=== PATIENT | female | born 2005 | race Caucasian/White ===

== ENCOUNTER 2024-05-15 13:47 | Observation (INO) ==
[2024-05-15 15:57] LABS: Basophils # (auto) 0.04 K/uL (0.00-0.20); Basophils % (auto) 0.4 %; Eosinophils # (auto) 0.03 K/uL (0.00-0.50); Eosinophils % (auto) 0.3 %; Hematocrit (blood only) 38.3 % (37.0-47.0); Immature Granulocytes # (auto) 0.02 K/uL (0.01-0.20); Immature Granulocytes % (auto) 0.2 %; Lymphocytes # (auto) 2.66 K/uL (1.20-3.40); Lymphocytes % (auto) 28.6 %; Mean Corpuscular Hemoglobin 26.8 pg (25.0-34.0); Mean Corpuscular Hgb Conc 33.9 g/dL (32.0-36.0); Mean Platelet Volume 8.9 fL (9.4-12.4); Monocytes # (auto) 0.43 K/uL (0.11-0.59); Monocytes % (auto) 4.6 %; Neutrophils # (auto) 6.13 K/uL (1.40-6.50); Neutrophils % (auto) 65.9 %; Platelet Count 466 K/uL (130-400); RDW Coefficient of Variation 12.9 % (11.5-14.5); RDW Standard Deviation 36.6 fL (36.4-46.3); Red Blood Count 4.85 M/uL (4.20-5.40); White Blood Count 9.31 K/ul (4.8-10.8)
--- NOTE | 2024-05-15 16:04 | XRay Report ---
XR chest 1V not portable HISTORY: 19 years-old Female Chest pain, nonspecific COMPARISON: None TECHNIQUE: PA view of the chest FINDINGS: Cardiomediastinal and hilar silhouettes are within normal limits. No pneumothorax, pleural effusion o r airspace consolidation. The bones appear normal. IMPRESSION: Normal exam. ACT 112: Negative or not required by law. The above report was generated using voice recognition software. It may contain grammatical, syntax o r spelling errors. Electronically signed by: Yahir Appiah M.D. 05/15/2024 4:02 PM
[2024-05-15 16:13] LABS: Albumin Globulin Ratio 1.3 (0.9-2); Albumin Level 4.5 gm/dl (3.4-5.0); Bilirubin,Total 0.4 mg/dl (0.2-1.0); Calcium 9.7 mg/dl (8.6-10.3); Creatinine Clr Calc Pharmacy 183.8 ml/min; Globulin 3.4 gm/dl (2.5-4.0); Potassium 3.6 mmol/L (3.5-5.1); Total Protein 7.9 gm/dl (6.0-8.3)
[2024-05-15 16:24] LABS: Partial Thromboplastin Time 26 Seconds (21-31); Prothrombin Time 10.5 Seconds (9.0-12.0)
[2024-05-15 16:27] LABS: Troponin I High Sensitivity 52.4 pg/ml (0-14)
--- NOTE | 2024-05-15 16:28 | Emergency Department Note ---
Impression & Plan Elevated troponin, Chest pain, Hypokalemia, Thrombocytosis ED Provider Note NAME: RAFFAELE MEDINA AGE: 19 SEX: F : 2005 ARRIVES VIA: Walk-In INFORMANT: Patient, ED PROVIDER(S): Kameron Green MD CHIEF COMPLAINT: Chest pain, outpatient referral MEDICAL DECISION MAKING: Patient presents with the above. IV was established and blood work is obtained. Patient with a normal white count hemoglobin with thrombocytosis of 466 kidney functions unremarkable with normal lecture lites. Troponin of 52.4. Patient did receive IV fluids and IV Zofran as the patient was complaining of nausea that began yesterday. EKG without signs of obvious ischemia. Repeat troponin was added. Upon reassessment the patient was feeling improved. Patient has no further symptoms. Repeat troponin shows downtrending troponin. Unable to obtain echo at this time. I did speak the on-call hospital service Dr. Snider and the patient was going to be admitted by Dr. Clancy. Dr. Snider and Dr. Clancy inpatient medicine service Discussion w/ other healthcare providers: None Prior /Outside records reviewed: None Differential diagnosis: Cardiac ischemia, aortic dissection, pulmonary embolism, pneumothorax, pneumonia, pericarditis, myocarditis, GERD, cholecystitis, pancreatitis, musculoskeletal, as well as other pathologies were considered. Diagnostics, as interpreted by me: ECG: Normal sinus rhythm, rate of 86, normal intervals, normal axis, T wave version in lead III. Cardiac monitoring: An order was placed for continuous cardiac monitoring. The monitor shows a rate of 82 with sinus rhythm. Patient was placed on pulse oximetry Medical decision rules: Heart score Imaging studies: I informally interpreted the patient's chest x-ray does not show obvious pneumonia or pneumothorax with formal report to follow. HPI: Patient presents due to concern for chest pain that she described as burning in nature that which began around 1230. The patient states that it began about an hour and a half after obtaining some outpatient recent blood work which was ordered because the patient developed some nausea yesterday. Patient states that she has had no cough or fever no upper or lower respiratory symptoms. The patient denies any abdominal pain. Patient states that the chest burning pain has been constant and has been centralized nonradiating. No leg swelling or calf pain no history of DVT or PE. The patient does use control and does have a NuvaRing. Patient states that she does take Dupixent for known history of eczema otherwise no other medications other than national medications for PCOS. Patient denies any recent long car plane travel. PAST MEDICAL HISTORY: See Below PAST SURGICAL HISTORY: See Below SOCIAL HISTORY: See Below HOME MEDICATIONS: See Below ALLERGIES: See Below VITALS: See Below PHYSICAL EXAMINATION: GENERAL: NAD, non-toxic. Wearing glasses. EYE EXAM: Normal conjunctiva. PERRL, no anisocoria and EOM's grossly intact w/o pain. OROPHARYNX: Moist mucus membranes, grossly normal dentition. NECK: Trachea midline, no stridor. Supple, no nuchal rigidity, no adenopathy, non-tender. No signs of meningismus. FROM of the neck with good chin to chest and neck extension. LUNGS: Clear to auscultation. Normal chest wall mechanics. HEART: NSR, no MRG. ABDOMEN: Abdomen soft, non-tender, no masses, no rebound or guarding. BACK: No CVA TTP. SKIN: No rashes and no bruising. UPPER EXTREMITIES: Upper extremities are grossly normal. LOWER EXTREMITIES: Grossly normal, no edema. Negative Homans' sign bilaterally. NEURO EXAM: A&O x3, cranial nerves II-XII grossly intact, normal speech, moves all 4 extremities. Past Med/Surg History Problem List (Updated 05/16/24 @ 00:06 by Kameron Green MD) Elevated troponin (Acute) Thrombocytosis (Acute) Hypokalemia (Acute) Chest pain (Acute) Social History Smoking Status: Never smoker Hx Alcohol Use: No Hx Substance Use: No Preferred Language: Palauan Communication Ability: Effective Correspondence Clerk Required: No Beliefs That Will Affect Care: None Current Living Situation: Other Other Information That Helps Us Care for You: No Feels Safe at Home: Yes Safety Concerns: Feels Safe At This Time Assistive Devices: None Allergies Allergies Allergy/AdvReac Type Severity Reaction Status Date / Time bee venom protein (honey bee) Allergy Mild swelling Unverified 05/15/24 18:55 Home Meds Home Medications Medication Instructions Recorded Confirmed Berberine 1 tab PO DAILY 05/15/24 05/15/24 Dupixent Syringe 1 dose INJ .Q OTHER WEEK 05/15/24 05/15/24 Vitamin D3 1 cap PO DAILY 05/15/24 05/15/24 amitriptyline 20 mg PO DAILY 05/15/24 05/15/24 etonogestrel 0.12 mg-ethinyl 1 vag ring vaginal MONTHLY 05/15/24 05/15/24 estradiol 0.015 mg/24 hr vaginal ring (NuvaRing) inositol 2 tab PO BID 05/15/24 05/15/24 Results & Data (ED) Vital Signs Vital Signs - 24 hr 05/15/24 13:59 05/15/24 17:03 05/15/24 18:13 Temperature 36.5 C Temperature Source Temporal Artery Scan Pulse Rate 93 H Pulse Rate [Finger] 105 H Respiratory Rate 18 16 Respiratory Effort / Characteristics Non-Labored Spontaneous Non-Labored Spontaneous Respiratory Depth Normal Normal Respiratory Pattern Regular Blood Pressure 148/87 H Blood Pressure [Left Arm] 129/67 Blood Pressure Mean 107 Blood Pressure Mean [Left Arm] 87 Blood Pressure Position [Left Arm] Lying Pulse Oximetry 97 100 99 Oxygen Delivery Method Room Air Room Air Room Air Sepsis Recent Fever Within 48 Hours No Sepsis New/Unexplained Change in Mental Status N/A Sepsis Action Taken by Nursing No Action Required 05/15/24 18:13 05/15/24 18:13 05/15/24 18:36 Temperature Temperature Source Pulse Rate 84 Pulse Rate [Finger] Respiratory Rate Respiratory Effort / Characteristics Respiratory Depth Respiratory Pattern Blood Pressure Blood Pressure [Left Arm] Blood Pressure Mean Blood Pressure Mean [Left Arm] Blood Pressure Position [Left Arm] Pulse Oximetry 99 100 Oxygen Delivery Method Room Air Room Air Sepsis Recent Fever Within 48 Hours Sepsis New/Unexplained Change in Mental Status Sepsis Action Taken by Nursing 05/15/24 19:00 Temperature Temperature Source Pulse Rate Pulse Rate [Finger] 108 H Respiratory Rate 18 Respiratory Effort / Characteristics Non-Labored Spontaneous Respiratory Depth Normal Respiratory Pattern Regular Blood Pressure Blood Pressure [Left Arm] 139/73 Blood Pressure Mean Blood Pressure Mean [Left Arm] 95 Blood Pressure Position [Left Arm] Pulse Oximetry 97 Oxygen Delivery Method Room Air Sepsis Recent Fever Within 48 Hours Sepsis New/Unexplained Change in Mental Status Sepsis Action Taken by Long-Term Medications Current Medication List: was personally reviewed by me Laboratory Data Attestation: I reviewed the patient's lab results. 05/15/24 15:24 05/15/24 15:24 Lab Results 05/15/24 05/15/24 05/15/24 Range/Units 15:24 17:35 19:38 WBC 9.31 (4.8-10.8) K/ul RBC 4.85 (4.20-5.40) M/uL Hgb 13.0 (12.0-16.0) g/dl Hct 38.3 (37.0-47.0) % MCV 79.0 L (80.0-100.0) fL MCH 26.8 (25.0-34.0) pg MCHC 33.9 (32.0-36.0) g/dL RDW Std Deviation 36.6 (36.4-46.3) fL RDW Coeff of Yani 12.9 (11.5-14.5) % Plt Count 466 H (130-400) K/uL MPV 8.9 L (9.4-12.4) fL Immature Gran % (Auto) 0.2 % Neut % (Auto) 65.9 % Lymph % (Auto) 28.6 % [place] % (Auto) 4.6 % Eos % (Auto) 0.3 % Baso % (Auto) 0.4 % Neut # (Auto) 6.13 (1.40-6.50) K/uL Lymph # (Auto) 2.66 (1.20-3.40) K/uL [place] # (Auto) 0.43 (0.11-0.59) K/uL Eos # (Auto) 0.03 (0.00-0.50) K/uL Baso # (Auto) 0.04 (0.00-0.20) K/uL Immature Gran # (Auto) 0.02 (0.01-0.20) K/uL PT 10.5 (9.0-12.0) Seconds INR 1.0 (0.9-1.1) APTT 26 (21-31) Seconds PTT Ratio 1.0 D-Dimer Cancelled Sodium 140 (136-145) mmol/L Potassium 3.6 (3.5-5.1) mmol/L Chloride 106 (98-107) mmol/L Carbon Dioxide 25 (21-32) mmol/L Anion Gap 9 (3-11) BUN 6 (6-23) mg/dl Creatinine 0.60 (0.6-1.2) mg/dl Est Cr Clr Drug Dosing 183.8 ml/min eGFR 131.70 BUN/Creatinine Ratio 10.0 (10-20) Glucose 89 (70-99(Fasting)) mg/dl Uric Acid 5.7 (2.6-7.2) mg/dl Calcium 9.7 (8.6-10.3) mg/dl Magnesium 2.1 (1.7-2.4) mg/dl Total Bilirubin 0.4 (0.2-1.0) mg/dl AST 19 (13-39) U/L ALT 27 (7-52) U/L Alkaline Phosphatase 75 (34-104) U/L Troponin I High Sens 52.4 H* 44.1 H 48.5 H (0-14) pg/ml Total Protein 7.9 (6.0-8.3) gm/dl Albumin 4.5 (3.4-5.0) gm/dl Globulin 3.4 (2.5-4.0) gm/dl Albumin/Globulin Ratio 1.3 (0.9-2) TSH 1.461 (0.300-4.500) uIu/ml Adenovirus (PCR) (NotDetected) B. pertussis DNA (PCR) (NotDetected) B.parapertussis DNA PCR (NotDetected) C. pneumoniae DNA (PCR) (NotDetected) Coronavirus OC43 (PCR) (NotDetected) Coronavirus HKU1 (PCR) (NotDetected) Coronavirus 229E (PCR) (NotDetected) SARS-CoV-2 (PCR) (NotDetected) Coronavirus NL63 (PCR) (NotDetected) Human Metapneumovir PCR (NotDetected) Influenza Type A (PCR) (NotDetected) Influenza Type B (PCR) (NotDetected) M. pneumoniae (PCR) (NotDetected) Parainfluenza 1 (PCR) (NotDetected) Parainfluenza 2 (PCR) (NotDetected) Parainfluenza 3 (PCR) (NotDetected) Parainfluenza 4 (PCR) (NotDetected) RSV (PCR) (NotDetected) Entero/Rhino (PCR) (NotDetected) 05/15/24 Range/Units 19:48 WBC (4.8-10.8) K/ul RBC (4.20-5.40) M/uL Hgb (12.0-16.0) g/dl Hct (37.0-47.0) % MCV (80.0-100.0) fL MCH (25.0-34.0) pg MCHC (32.0-36.0) g/dL RDW Std Deviation (36.4-46.3) fL RDW Coeff of Yani (11.5-14.5) % Plt Count (130-400) K/uL MPV (9.4-12.4) fL Immature Gran % (Auto) % Neut % (Auto) % Lymph % (Auto) % [place] % (Auto) % Eos % (Auto) % Baso % (Auto) % Neut # (Auto) (1.40-6.50) K/uL Lymph # (Auto) (1.20-3.40) K/uL [place] # (Auto) (0.11-0.59) K/uL Eos # (Auto) (0.00-0.50) K/uL Baso # (Auto) (0.00-0.20) K/uL Immature Gran # (Auto) (0.01-0.20) K/uL PT (9.0-12.0) Seconds INR (0.9-1.1) APTT (21-31) Seconds PTT Ratio D-Dimer Sodium (136-145) mmol/L Potassium (3.5-5.1) mmol/L Chloride (98-107) mmol/L Carbon Dioxide (21-32) mmol/L Anion Gap (3-11) BUN (6-23) mg/dl Creatinine (0.6-1.2) mg/dl Est Cr Clr Drug Dosing ml/min eGFR BUN/Creatinine Ratio (10-20) Glucose (70-99(Fasting)) mg/dl Uric Acid (2.6-7.2) mg/dl Calcium (8.6-10.3) mg/dl Magnesium (1.7-2.4) mg/dl Total Bilirubin (0.2-1.0) mg/dl AST (13-39) U/L ALT (7-52) U/L Alkaline Phosphatase (34-104) U/L Troponin I High Sens (0-14) pg/ml Total Protein (6.0-8.3) gm/dl Albumin (3.4-5.0) gm/dl Globulin (2.5-4.0) gm/dl Albumin/Globulin Ratio (0.9-2) TSH (0.300-4.500) uIu/ml Adenovirus (PCR) Not Detected (NotDetected) B. pertussis DNA (PCR) Not Detected (NotDetected) B.parapertussis DNA PCR Not Detected (NotDetected) C. pneumoniae DNA (PCR) Not Detected (NotDetected) Coronavirus OC43 (PCR) Not Detected (NotDetected) Coronavirus HKU1 (PCR) Not Detected (NotDetected) Coronavirus 229E (PCR) Not Detected (NotDetected) SARS-CoV-2 (PCR) Not Detected (NotDetected) Coronavirus NL63 (PCR) Not Detected (NotDetected) Human Metapneumovir PCR Not Detected (NotDetected) Influenza Type A (PCR) Not Detected (NotDetected) Influenza Type B (PCR) Not Detected (NotDetected) M. pneumoniae (PCR) Not Detected (NotDetected) Parainfluenza 1 (PCR) Not Detected (NotDetected) Parainfluenza 2 (PCR) Not Detected (NotDetected) Parainfluenza 3 (PCR) Not Detected (NotDetected) Parainfluenza 4 (PCR) Not Detected (NotDetected) RSV (PCR) Not Detected (NotDetected) Entero/Rhino (PCR) Not Detected (NotDetected) Administered Medications Colchicine (Colchicine 0.6 Mg Tab) 0.6 mg PO BID SMITH Stop: 06/14/24 20:59 Last Admin: 05/15/24 20:54 Dose: 0.6 mg Documented By: BETTE Sodium Chloride (Nss) 500 mls @ 80 mls/hr IV .Q6H15M SMITH Stop: 05/16/24 02:29 Last Admin: 05/15/24 21:16 Dose: 80 mls/hr Documented By: BETTE Discontinued Medications Al Hydrox/Mg Hydrox/Simethicone (Aluminum/Magnesium Susp 30 Ml Udc) 30 ml PO NOW STA Stop: 05/15/24 16:53 Last Admin: 05/15/24 16:59 Dose: 30 ml Documented By: CONCHITAK Aspirin (Aspirin 81 Mg Chew) 81 mg PO NOW STA Stop: 05/15/24 20:01 Last Admin: 05/15/24 20:22 Dose: 81 mg Documented By: BETTE Sodium Chloride (Nss) 500 mls @ 999 mls/hr IV .Q31M ONE Stop: 05/15/24 17:19 Last Infusion: 05/15/24 17:31 Dose: Infused Documented By: Admin: 05/15/24 17:00 Dose: 999 mls/hr Documented By: CONCHITAK Pantoprazole Sodium (Protonix) 40 mg in 10 mls @ 5 mls/min IV NOW ONE Stop: 05/15/24 19:46 Last Admin: 05/15/24 19:54 Dose: 5 mls/min Documented By: BETTE Acetaminophen (Ofirmev) 1,000 mg in 100 mls @ 400 mls/hr IV NOW STA Stop: 05/15/24 21:10 Last Infusion: 05/15/24 21:30 Dose: Infused Documented By: Admin: 05/15/24 21:15 Dose: 400 mls/hr Documented By: BETTE Ondansetron HCl (Ondansetron Inj 2 Mg/Ml 2 Ml Vial) 4 mg IV NOW STA Stop: 05/15/24 16:50 Last Admin: 05/15/24 16:59 Dose: 4 mg Documented By: CONCHITAK Potassium Chloride (Potassium Chloride Crtab 20 Meq Tabcr) 40 meq PO NOW STA Stop: 05/15/24 20:02 Last Admin: 05/15/24 20:22 Dose: 40 meq Documented By: BETTE Imaging Data Radiologist's Impression: Chest X-Ray 05/15/24 14:03 XR chest 1V not portable HISTORY: 19 years-old Female Chest pain, nonspecific COMPARISON: None TECHNIQUE: PA view of the chest FINDINGS: Cardiomediastinal and hilar silhouettes are within normal limits. No pneumothorax, pleural effusion or airspace consolidation. The bones appear normal. IMPRESSION: Normal exam. ACT 112: Negative or not required by law. The above report was generated using voice recognition software. It may contain grammatical, syntax or spelling errors. Electronically signed by: Yahir Appiah M.D. 05/15/2024 4:02 PM Discharge Plan Visit Data Chief Complaint: Chest Pain Stated Complaint: HEART BURN/CHEST GIBBS, NAUSEA, HAS ZOFRAN ED Provider: Kameron Green Discharge Problem: Elevated troponin, Chest pain, Hypokalemia, Thrombocytosis Patient Disposition: Admitted As Inpatient Discharge Instructions Interventions: ED Discharge Assessment Last Done: 05/15/24 22:55 Discharge Problem: Chest pain Qualifiers: Chest pain type: unspecified Qualified Code(s): R07.9 - Chest pain, unspecified
--- NOTE | 2024-05-15 16:42 | Electrocardiogram Report ---
Test Reason : Blood Pressure : */* mmHG Vent. Rate : 86 BPM Atrial Rate : 86 BPM P-R Int : 142 ms QRS Dur : 80 ms QT Int : 362 ms P-R-T Axes : 25 20 36 degrees QTcB Int : 433 ms Normal sinus rhythm with sinus arrhythmia Normal ECG No previous ECGs available Confirmed by Bart Reynoso ([id number]) on 05/15/2024 4:41:25 PM Referred By: Confirmed By: Bart Reynoso
[2024-05-15] MEDS: ONDANSETRON INJ 2 MG/ML 2 ML VIAL IV STA (16:59)
[2024-05-15] MEDS: ALUMINUM/MAGNESIUM SUSP 30 ML UDC PO STA (16:59)
[2024-05-15] MEDS: SODIUM CHLORIDE 0.9% 500 ML IV ONE (17:00)
--- NOTE | 2024-05-15 19:13 | History & Physical Report ---
Date of Service May 15, 2024 Assessment & Plan (1) Chest pain: (2) Elevated troponin: (3) Hypokalemia: (4) Thrombocytosis: Plan Patient is a 19-year-old female with a past medical history of GERD, interstitial cystitis, eczema, PCOS. She presented to the ED due to a midsternal burning chest pain that she describes similar to heartburn. Patient has had similar pain in the past when she got anxious, has had increase in stress over the past week. Patient has also had nausea, fatigue, and diarrhea for roughly 1 week. Her chest pain has resolved to 0/10 after Maalox and Zofran in ED. Patient is being admitted for a chest pain workup. #chest pain/ elevated trop d dimer negative, TSH WNL, uric acid negative EKG showing NSR patient is on estrogen control, NuvaRing Differential includes GERD vs viral myocarditis vs takotsubo cardiomyopathy will order colchicine 0.6 mg BID will order aspirin 81 BID will order pantoprazole IV order scheduled Tylenol Zofran prn, Maalox prn - will consider Toradol and Carafate if pain persists monitor on tele echo ordered elevated trop - downtrending 52.4 -> 44.1; trend trop Q6H, monitor on tele tachycardia - Hr 108, suspect secondary to anxiety, d dimer negative, will give additional IVF with NSS 500 mL at 80 mL/hour #hypokalemia with chest pain k+ 3.6 -> will optimize for goal of 4.0 - 40 meq PO ordered Mg stable #thrombocytosis platelets 466 Suspect 2/2 acute infection Trend CBC Chronic stable diagnoses: interstitial cystitis - uses amitriptyline as needed PCOS - on home supplements; held on admission as NF eczema - dupixent out pt VTE ppx: SCDs - low risk Diet: regular as tolerated Dispo: med/tele Admission and Anticipated Discharge Date Admission Date: 05/15/24 History of Present Illness Chief Complaint: chest pain Primary Care Provider: [facility] Patient is a 19-year-old female with a past medical history of eczema, GERD, interstitial cystitis, PCOS. She was seen at bedside with her college friends present. She stated that 05/07 she [address] home and back within 1 day which was a 6-hour car ride. After this she started with nausea that has been ongoing since . She thought she just had a stomach bug because she typically gets nausea with the stomach bug, she denies vomiting. She also endorses diarrhea at the beginning of the week that is now resolved; roughly 2-3 episodes. On Saturday this week she stated she just felt worn down and like she was fighting something. She has been extremely stressed as she has been participating in [employer] ([place] When she was younger she used to get similar chest pain when she had anxiety and was stressed out. due to the nausea she called [facility] at bedtime on Saturday and they called 911, paramedics said everything looked okay and she did not need to be evaluated in the ED. she a lso called her PCP earlier this week who prescribed her Zofran for the nausea which did not seem to help. Today she received outpatient blood work which all looked okay according to the patient. She describes a chest pain that began at 1230 today After receiving the blood work. Her roommate was driving home when the patient began crying due to significant burning/heartburn that developed midsternal and spread out across her chest. She stated this burning sensation was 7/10 pain. She stated that it felt like she could not burp which has been happening this week due to the nausea. Patient denies fever, chills, headache, dizziness, lightheadedness, rhinorrhea, sore throat, cough, sputum production, dyspnea, dyspnea on exertion, abdominal pain, constipation, numbness, tingling. She denies any leg swelling. She did have the long car ride roughly a week ago. She denies any history of hypercoagulable states or previous VTE. Her grandmother did of a PE but also had lung cancer. Patient denies any history of diabetes but does have significant family history of. She does not use nicotine products or illicit drugs. She drinks alcohol roughly 1 time a week. She has had no recent medication changes. She wishes to be full code at this time. Patient's parents updated at bedside via phone. 2056 patient's chest pain returned, EKG showed NSR, repeat troponin 46.4. IV Tylenol ordered. Patient's friends getting [employer] for her for dinner at she feels she is able to tolerate p.o. intake and is hungry. If chest pain is still present after 30 minutes, will order IV Toradol. Allergies Allergy/AdvReac Type Severity Reaction Status Date / Time bee venom protein (honey bee) Allergy Mild swelling Unverified 05/15/24 18:55 Home Medications Medication Instructions Recorded Confirmed Type Berberine 1 tab PO DAILY 05/15/24 05/15/24 History Dupixent Syringe 1 dose INJ .Q OTHER WEEK 05/15/24 05/15/24 History Vitamin D3 1 cap PO DAILY 05/15/24 05/15/24 History amitriptyline 20 mg PO DAILY 05/15/24 05/15/24 History etonogestrel 0.12 mg-ethinyl 1 vag ring vaginal MONTHLY 05/15/24 05/15/24 History estradiol 0.015 mg/24 hr vaginal ring (NuvaRing) inositol 2 tab PO BID 05/15/24 05/15/24 History Past Med/Surg History Problem List (Updated 05/16/24 @ 00:06 by Kameron Green MD) Elevated troponin (Acute) Thrombocytosis (Acute) Hypokalemia (Acute) Chest pain (Acute) Social History Smoking Status: Never smoker Hx Alcohol Use: No Hx Substance Use: No Preferred Language: Tajik Communication Ability: Effective Cork Compounder Required: No Beliefs That Will Affect Care: None Current Living Situation: Other Feels Safe at Home: Yes Assistive Devices: None Review of Systems Review of Systems: see HPI Physical Exam Physical Exam: The patient is awake, alert and oriented 3, well developed and well nourished, normocephalic and atraumatic, in no acute distress. Non-toxic appearing. HEENT- EOMI, mucous membranes moist. Hearing grossly intact. Heart-normal S1 and S2. No murmurs, rubs or gallops. Lungs-clear bilaterally, no respiratory distress, no accessory muscle use. Abdomen-normal bowel sounds and soft. No ascites noted. Non-tender. Extremities- no clubbing, cyanosis, or edema. Rheumatologic-normal range of motion. Psychiatric-anxious affect. Results & Data Results & Data Vital Signs (Past 12 Hours) Vital Signs Temp Pulse Pulse Resp BP BP Pulse Ox 05/15/24 18:36 84 05/15/24 18:13 100 05/15/24 18:13 99 05/15/24 18:13 99 05/15/24 17:03 105 H 16 129/67 100 05/15/24 13:59 36.5 C 93 H 18 148/87 H 97 O2 Del Method 05/15/24 18:36 05/15/24 18:13 Room Air 05/15/24 18:13 Room Air 05/15/24 18:13 Room Air 05/15/24 17:03 Room Air 05/15/24 13:59 Room Air Laboratory Results Reviewed CBC, CMP, PT/INR,, Mg, troponin, TSH Diagnostic Findings reviewed CXR Medications Administered ed: Maalox 30 Mg p.o., 500 mL NSS bolus, IV Zofran ECG Additional Comments: NSR Code Status & VTE Plan Code Status full code VTE Prophylaxis Plan VTE Prophylaxis will be ordered: Yes Supervising Physician Co-Signing Physician Notes Attending addendum: I have physically seen this patient, have supervised the AP's activities, and agree with the H&P unless as otherwise noted. Assessment and Plan: The patient is a 19-year-old female with past medical history including GERD, interstitial cystitis, eczema and PCOS. She presents to the emergency department with midsternal burning chest pain, felt like heartburn, however, became anxious, episodes ED for evaluation. In ED patient was found to be elevated troponin 44.1 with mild increased 52.4, and was referred for evaluation for admission. #Elevated troponin/chest pain- Negative D-dimer, uric acid negative not, EKG with normal sinus rhythm no acute ST-T changes Differential including Takotsubo's, myocarditis, NSTEMI The patient will be admitted to telemetry for serial cardiac enzymes, serial EKG's, cardiac rhythm monitoring and a 2-D echocardiogram with Dopplers. Start colchicine 0.6 mg p.o. twice daily and aspirin 81 mg p.o. twice daily Single dose pantoprazole 40 mg IV Acetaminophen 650 mg p.o. every 6 hours Zofran as needed Consult cardiology PG Care Time/CCT Total # of Minutes Spent Total Time Spent with Patient: Total time spent is greater than 50% in coordination of care (as documented) at patient's floor/unit and/or counseling patient: Coding Level of Care Code 99705 INT INP/OBS CARE 3/75MIN Diagnoses Chest pain R07.9 Elevated troponin R79.89 Hypokalemia E87.6 Thrombocytosis D75.83
[2024-05-15] MEDS: PANTOprazole 40 MG/10 ML SYR IV ONE (19:54)
[2024-05-15 20:09] LABS: Magnesium 2.1 mg/dl (1.7-2.4)
[2024-05-15 20:16] LABS: Troponin I High Sensitivity 48.5 pg/ml (0-14)
[2024-05-15 20:22] LABS: Uric Acid 5.7 mg/dl (2.6-7.2)
[2024-05-15] MEDS: ASPIRIN 81 MG CHEW PO STA (20:22)
[2024-05-15] MEDS: POTASSIUM CHLORIDE CRTAB 20 MEQ TABCR PO STA (20:22)
[2024-05-15 20:25] LABS: Thyroid Stimulating Hormone 1.461 uIu/ml (0.300-4.500)
[2024-05-15] MEDS: COLCHICINE 0.6 MG TAB PO SCH (20:54)
[2024-05-15] MEDS: ACETAMINOPHEN 1,000 MG/100 ML VIAL IV STA (21:15)
[2024-05-15] MEDS: SODIUM CHLORIDE 0.9% 500 ML IV SCH (21:16)
[2024-05-15 21:24] LABS: D Dimer 440 ug/L FEU (0-500)
[2024-05-15 21:51] LABS: Adenovirus PCR Not Detected (NotDetected); Bordetella parapertussis PCR Not Detected (NotDetected); Bordetella pertussis PCR Not Detected (NotDetected); Chlamydia pneumoniae PCR Not Detected (NotDetected); Coronavirus 229E PCR Not Detected (NotDetected); Coronavirus CoV-2 (COVID19)PCR Not Detected (NotDetected); Coronavirus HKU1 PCR Not Detected (NotDetected); Coronavirus NL63 PCR Not Detected (NotDetected); Coronavirus OC43PCR Not Detected (NotDetected); Human Metapneumovirus PCR Not Detected (NotDetected); Influenza A PCR Not Detected (NotDetected); Influenza B PCR Not Detected (NotDetected); Mycoplasma pneumoniae PCR Not Detected (NotDetected); Parainfluenza Virus 1 PCR Not Detected (NotDetected); Parainfluenza Virus 2 PCR Not Detected (NotDetected); Parainfluenza Virus 3 PCR Not Detected (NotDetected); Parainfluenza Virus 4 PCR Not Detected (NotDetected); Respiratory Syncytial VirusPCR Not Detected (NotDetected); Rhinovirus/Enterovirus PCR Not Detected (NotDetected)
[2024-05-15] MEDS ORDERED: ONDANSETRON INJ 2 MG/ML 2 ML VIAL IV PRN (23:19)
[2024-05-15] MEDS ORDERED: ALUMINUM/MAGNESIUM SUSP 30 ML UDC PO PRN (23:19)
[2024-05-15] MEDS ORDERED: ACETAMINOPHEN 325 MG TAB PO PRN (23:19)
[2024-05-16 03:07] LABS: Basophils # (auto) 0.03 K/uL (0.00-0.20); Basophils % (auto) 0.3 %; Eosinophils # (auto) 0.06 K/uL (0.00-0.50); Eosinophils % (auto) 0.7 %; Hematocrit (blood only) 35.6 % (37.0-47.0); Hemoglobin 11.9 g/dl (12.0-16.0); Immature Granulocytes # (auto) 0.02 K/uL (0.01-0.20); Immature Granulocytes % (auto) 0.2 %; Lymphocytes # (auto) 3.46 K/uL (1.20-3.40); Lymphocytes % (auto) 39.5 %; Mean Corpuscular Hemoglobin 26.3 pg (25.0-34.0); Mean Corpuscular Hgb Conc 33.4 g/dL (32.0-36.0); Mean Corpuscular Volume 78.8 fL (80.0-100.0); Mean Platelet Volume 8.9 fL (9.4-12.4); Monocytes # (auto) 0.51 K/uL (0.11-0.59); Monocytes % (auto) 5.8 %; Neutrophils # (auto) 4.69 K/uL (1.40-6.50); Neutrophils % (auto) 53.5 %; Platelet Count 418 K/uL (130-400); Red Blood Count 4.52 M/uL (4.20-5.40); White Blood Count 8.77 K/ul (4.8-10.8)
[2024-05-16 03:24] LABS: BUN Creatinine Ratio 11.1 (10-20); Calcium 8.5 mg/dl (8.6-10.3); Creatinine Clr Calc Pharmacy 204.4 ml/min; Magnesium 2.2 mg/dl (1.7-2.4); Potassium 3.9 mmol/L (3.5-5.1)
[2024-05-16] MEDS: ACETAMINOPHEN 325 MG TAB PO SCH (05:15)
[2024-05-16] MEDS: ASPIRIN 81 MG ECTAB PO SCH (07:41)
[2024-05-16] MEDS: PANTOprazole 40 MG/10 ML SYR IV SCH (07:41)
--- NOTE | 2024-05-16 09:59 | Discharge Summary ---
Date of Service May 16, 2024 Admission HPI Per Admitting Provider Patient is a 19-year-old female with a past medical history of eczema, GERD, interstitial cystitis, PCOS. She was seen at bedside with her college friends present. She stated that 05/07 she drove home and back within 1 day which was a 6-hour car ride. After this she started with nausea that has been ongoing since . She thought she just had a stomach bug because she typically gets nausea with the stomach bug, she denies vomiting. She also endorses diarrhea at the beginning of the week that is now resolved; roughly 2-3 episodes. On Saturday this week she stated she just felt worn down and like she was fighting something. She has been extremely stressed as she has been participating in better.. When she was younger she used to get similar chest pain when she had anxiety and was stressed out. due to the nausea she called [facility] at bedtime on Saturday and they called 911, paramedics said everything looked okay and she did not need to be evaluated in the ED. she also called her PCP earlier this week who prescribed her Zofran for the nausea which did not seem to help. Today she received outpatient blood work which all looked okay according to the patient. She describes a chest pain that began at 1230 today After receiving the blood work. Her roommate was driving home when the patient began crying due to significant burning/heartburn that developed midsternal and spread out across her chest. She stated this burning sensation was 7/10 pain. She stated that it felt like she could not burp which has been happening this week due to the nausea. Patient denies fever, chills, headache, dizziness, lightheadedness, rhinorrhea, sore throat, cough, sputum production, dyspnea, dyspnea on exertion, abdominal pain, constipation, numbness, tingling. She denies any leg swelling. She did have the long car ride roughly a week ago. She denies any history of hypercoagulable states or previous VTE. Her grandmother did of a PE but also had lung cancer. Patient denies any history of diabetes but does have significant family history of. She does not use nicotine products or illicit drugs. She drinks alcohol roughly 1 time a week. She has had no recent medica tion changes. She wishes to be full code at this time. Patient's parents updated at bedside via phone. 2056 patient's chest pain returned, EKG showed NSR, repeat troponin 46.4. IV Tylenol ordered. Patient's friends getting [employer] for her for dinner at she feels she is able to tolerate p.o. intake and is hungry. If chest pain is still present after 30 minutes, will order IV Toradol. Admission Exam Per Admitting Provider The patient is awake, alert and oriented 3, well developed and well nourished, normocephalic and atraumatic, in no acute distress. Non-toxic appearing. HEENT- EOMI, mucous membranes moist. Hearing grossly intact. Heart-normal S1 and S2. No murmurs, rubs or gallops. Lungs-clear bilaterally, no respiratory distress, no accessory muscle use. Abdomen-normal bowel sounds and soft. No ascites noted. Non-tender. Extremities- no clubbing, cyanosis, or edema. Rheumatologic-normal range of motion. Psychiatric-anxious affect. Principal Diagnosis GERD, acute stress reaction Discharge Exam Constitutional: well appearing, no acute distress HEENT: normocephalic, no conjunctival injection CV: regular rhythm, regular rate, no murmur, no LE edema Respiratory: Clear to auscultation bilaterally. No rhonchi, wheezes, or crackles. No increased work of breathing MSK: no gross deformities noted Skin: warm, dry, no rashes Neuro: alert, oriented, no FND noted Discharge Data Allergies Allergy/AdvReac Type Severity Reaction Status Date / Time bee venom protein (honey bee) Allergy Mild swelling Unverified 05/15/24 18:55 Consultations 05/15/24 18:14 ED Decision to Admit Stat Hospital Course (1) Chest pain: Pt is a 19 yo female with PMH of PCOS and interstitial cystitis presenting to the hospital d/t chest pain. 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 - troponin minimally elevated (~40-50s); EKG WNL - pt's chest pain resolved after receiving medication in the ER and has not returned - suspect chest pain is secondary to acid reflux which has flared in the setting of recent illness and stress; no need for aspirin or colchicine on discharge - discussed dietary changes and stress management with pt - d/t lack of concern for cardiac etiology, pt will be discharged prior to echo resulting- if any concerning results, will call pt - f/u with PCP Thrombocytosis - suspect secondary to recent infection - would recommend f/u as outpatient Dispo: discharge home w/ PCP f/u (2) Elevated troponin: (3) Thrombocytosis: Total Time Total Time Spent Total Time Spent (In Minutes): <30 Discharge Plan Discharge Items Patient Disposition: Home - Self-Care Reason For Visit: CHEST PAIN WORKUP Discharge Diagnosis: acute GERD, acute stress reaction Activity: Per Instructions section Non-emergency contact: Primary Care Provider Call non-emergency contact if: you have any medication questions, your symptoms worsen and your pain is concerning for you Follow-up/Referrals: [facility] [Primary Care Provider] - Diet: Regular Addtl Attending Provider Instructions: You were admitted to the hospital for chest pain. You were treated with medicines to reduce inflammation and also reduce acid in your stomach/throat. This seemed to resolve your symptoms. It is thought that your symptoms are mostly related to increased acid in your stomach/throat (most likely a result of your recent illness and increased stress level). You should focus on your eating habits (less acidic food, not eating close to bed time, etc) and controlling your stress levels in order to help your symptoms. An ultrasound of your heart was performed while you were here. We discussed discharging you prior to these results as we do not expect to find anything. If there is anything of concern on your ultrasound report, we will contact you. A discharge summary will be sent to your primary care physician to ensure continuity of care. Please bring this discharge summary with you to your next office appointment so that your provider can review it at that time. Medications: Your medication list has been reviewed and reconciled upon discharge to ensure accuracy and continuity of care. An updated list of all your medications is included with your hospital discharge paperwork. Please review this list closely and make note of any changes to your medications. - None of your home medications were changed. - If you have recurrent burning in your throat, you may try over the counter medications including Tums (generic calcium carbonate) or Pepcid (generic famotidine). Follow up appointments: - Make a follow up appointment with your PCP within the next week. It is very important that you follow up with them shortly after discharge from the hospital. - Keep all of your follow up appointments as already scheduled. If you cannot make an appointment, notify your provider. CONTACT YOUR PRIMARY CARE PROVIDER if you experience any of the following: - Difficulty following your treatment plan - Difficulty taking any of your medications CALL 911 OR GO TO THE EMERGENCY DEPARTMENT if you experience any of the f ollowing: - Sudden, severe abdominal pain or nausea/vomiting - Severe chest pain or chest pain that radiates to your jaw or arm - Sudden, severe shortness of breath or difficulty breathing Pending Studies at Discharge: No Stand-Alone Forms: My [facility], Smoking Cessation Medications and DC Order Prescriptions: Continued etonogestrel-ethinyl estradiol [NuvaRing] 0.12-0.015 mg/24 hr Ring 1 vag ring VAGINAL MONTHLY Berberine 1 tab PO DAILY Rx Instructions: otc Dupixent Syringe 1 dose INJ .Q OTHER WEEK Rx Instructions: pt unsure of dose. Vitamin D3 1 cap PO DAILY Rx Instructions: otc unknown dose amitriptyline 20 mg PO DAILY Rx Instructions: pet pt she takes 20 mg inositol 2 tab PO BID Rx Instructions: otc unknown dose Discharge Orders: Discharge Order (Routine); Ordered 05/16/24 Ordered By: Sylvia Mayberry/Other Patient Handouts: ED GERD (Adult) Admission Data Admit Date/Time: 05/15/24 20:00 Attending Provider: Salvador Mayo Admit Provider: Israel Norton Primary Care Provider: [facility] Other Providers: Israel Norton Other Interventions: Discharge Summary Assessment (RN) Last Done: 05/16/24 13:23 Supervising Physician Co-Signing Physician Notes I personally examined the patient and verified all saavedra points of history and exam, discussed case, and agree with decision making with Dr Edgar Feeling better. Feeling up to going home. Extensive discussion with patient as well as family on likelihood of multifactorial cause of symptomsGERD being the main cause of symptoms, but provoked by recent viral illness, as well as fatigue as well as low quality diet as well as stress. She feels safe to go home. Discussed what myocarditis and pericarditis would look like/what findings would be expected and how fortunately none of this adds up with her. Vitals noted, in general she is awake and alert pleasant no distress. HEENT normocephalic atraumatic mucous membranes moist. Breathing unlabored no accessory muscle use good effort. Skin without rashes pallor or icterus. Neuro without focal deficits. Upper GI related chest paintroponin almost certainly just from being illsuch a nominal elevation really of no significance. EKG/ echo also normal adding to the reassurancebut the clinical syndrome really fit more with the above noted conglomeration of viral illness/stress/fatigue/poor quality diet precipitating some fairly bad reflux. Safe/stable for home. Answered all questions to the best my ability and to her and her parents satisfaction.
[2024-05-16 11:32] VITALS: BP 110/73; RESP 19; TEMP 98.1; O2SAT 98
--- NOTE | 2024-05-16 12:36 | XCELERA ---
[id number] \\[id number]
[2024-05-16 13:59] VITALS: PULSE 81
--- NOTE | 2024-05-16 14:15 | Billing Data ---
Date of Service May 16, 2024 Coding Level of Care Code 21963 IN/OBS DISCH 30 MIN/LESS
== END 2024-05-16 14:23 | disposition home or self-care (01) ==
LOC: ED 13:47 → 2N 13:47 → SUATTDRO 20:00 → 2N 22:55